=== PATIENT | male | born 1975 | race Caucasian/White ===

== ENCOUNTER 2017-08-18 11:16 | Emergency (ER) | payer SELFPAY ==
--- NOTE | 2017-08-18 11:59 | EDM.PDOC ---
ED HPI GENERAL MEDICAL PROBLEM - General Chief Complaint: Lower Extremity Injury/Pain Stated Complaint: L LEG PAIN Time Seen by Provider: 08/18/17 11:28 Source of Information: Reports: Patient History Limitations: Reports: No Limitations - History of Present Illness INITIAL COMMENTS - FREE TEXT/NARRATIVE: The patient presents with an area of redness, warmth and pain to the left upper anterior leg. He noticed this a week ago but it is a little more painful. He is worried about a DVT. 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 He has no injury to the leg. No history of DVT or PE. He has no fever, chills, cough, chest pain or shortness of breath. Onset: Gradual Duration: Week(s): (1) Location: Reports: Lower Extremity, Left (thigh) Quality: Reports: Sharp Severity: Mild Improves with: Reports: None Worsens with: Reports: None Associated Symptoms: Reports: No Other Symptoms Treatments [employer] WORKER: Reports: Other (see below) Other Treatments [employer] WORKER: motrin in the past Right Upper Leg Pain Score (Numeric/FACES): 7 - Related Data Allergies Allergy/AdvReac Type Severity Reaction Status Date / Time No Known Allergies Allergy Verified 08/18/17 11:25 Home Meds: Home Meds . [No Known Home Meds] 08/18/17 [History] Past Medical History Respiratory History: Reports: Sleep Apnea Other Respiratory History: wears c-pap Social & Family History - Tobacco Use Smoking Status *Q: Never Smoker - Caffeine Use Caffeine Use: Reports: Coffee, Soda, Tea - Recreational Drug Use Recreational Drug Use: No Review of Systems - Review of Systems Review Of Systems: See Below Constitutional: Reports: No Symptoms Eyes: Reports: No Symptoms Ears: Reports: No Symptoms Nose: Reports: No Symptoms Mouth/Throat: Reports: No Symptoms Respiratory: Reports: No Symptoms Cardiovascular: Reports: No Symptoms GI/Abdominal: Reports: No Symptoms Genitourinary: Reports: No Symptoms Musculoskeletal: Reports: Other (Redness, swelling and pain to the left anterior thigh) Skin: Reports: No Symptoms ED EXAM, GENERAL - Physical Exam Exam: See Below Exam Limited By: No Limitations General Appearance: Alert, No Apparent Distress Ears: Normal External Exam Nose: Normal Inspection Head: Atraumatic, Normocephalic Neck: Normal Inspection Respiratory/Chest: No Respiratory Distress, Lungs Clear, Normal Breath Sounds Cardiovascular: Regular Rate, Rhythm, No Edema, No Murmur GI/Abdominal: Soft, Non-Tender, No Organomegaly, No Mass Back Exam: Normal Inspection Extremities: Other (Area of redness, swelling and pain upon palpation to the left anterior thigh with edema over a varicose vein. Other vericose veins seen in his leg. Good sensation and pulses distally.) Course - Vital Signs Last Recorded V/S: Last Vital Signs Temp 99.3 F 08/18/17 11:27 Pulse 84 08/18/17 11:27 Resp 20 08/18/17 11:27 BP 153/99 H 08/18/17 11:27 Pulse Ox 100 08/18/17 11:27 - Orders/Labs/Meds Orders: Active Orders 24 hr Category Date Time Status VL Duplex Lwr Ext Veins Ltd Lt [US] Stat Exams 08/18/17 12:17 Taken - Re-Assessments/Exams Free Text/Narrative Re-Assessment/Exam: 08/18/17 12:01 I have ordered an US of his leg. 08/18/17 13:20 The US shows a superficial thrombophlebitis and no DVT. I will get him on an aspirin and an DAVID wrap. He has large leg and I am am worried he could not wear compression stockings. Departure - Departure Time of Disposition: 13:25 Disposition: Home, Self-Care 01 Condition: Good Clinical Impression: Superficial thrombophlebitis Qualifiers: Superficial thrombophlebitis-Involved body area: lower extremity Laterality: left Qualified Code(s): I80.02 - Phlebitis and thrombophlebitis of superficial vessels of left lower extremity - Discharge Information Referrals: PCP,None [Primary Care Provider] - Rebeka Yoon [Physician] - Forms: ED Department Discharge Additional Instructions: Take an 81mg dose of aspirin daily. Wear the david wrap on your left leg for a few days. Take if off a few times per day to prevent any swelling. Keep your legs moving while your are sitting in the tuck. Please return if you have more swelling, pain, or redness of if you develop chest pain or shortness of breath. Follow up with Dr Yoon in 1 to 2 weeks. - My Orders Last 24 Hours: My Active Orders 08/18/17 12:17 VL Duplex Lwr Ext Veins Ltd Lt [US] Stat - Assessment/Plan Last 24 Hours: My Active Orders 08/18/17 12:17 VL Duplex Lwr Ext Veins Ltd Lt [US] Stat
--- NOTE | 2017-08-18 13:34 | US ---
Left lower extremity deep venous ultrasound: Duplex and color flow imaging was obtained of the left common femoral, proximal greater saphenous, superficial femoral, popliteal, posterior tibial and peroneal veins. Right common femoral vein was also evaluated. Findings: Normal phasic flow, augmentation and compression is seen within the deep veins. Superficial varicosity beginning within the proximal left thigh and extending within the proximal calf is seen showing thrombosis compatible with an extensive superficial clot. Impression: 1. Extensive superficial thrombophlebitis. 2. No evidence of deep venous thrombosis within the left lower extremity or within the right common femoral vein. Diagnostic code #3
== END 2017-08-18 13:25 | disposition home or self-care (01) ==
LOC: JD.ED 11:16
DX: I80.02 Phlebitis and thrombophlebitis of superficial vessels of left lower extremity (principal)
CPT/HCPCS: 93971-26-LT; 93971-LT; 99283; 99284-25